=== PATIENT | female | born 1990 | race Caucasian/White ===

== ENCOUNTER 2016-11-08 05:50 | Emergency (ER) | payer OTHER ==
--- NOTE | 2016-11-08 05:58 | EDM.PDOC ---
<Viktor Chew - Last Filed: 11/08/16 07:23> ED HPI GENERAL MEDICAL PROBLEM - General Chief Complaint: Abdominal Pain Stated Complaint: LOWER ABDOMINAL PAIN Time Seen by Provider: 11/08/16 05:58 - History of Present Illness INITIAL COMMENTS - FREE TEXT/NARRATIVE: 26-year-old female presents emergency room with abdominal pain. This pain started about 1:00 this morning localized to the lower abdomen. It reminds her of ovarian pain. The patient has history of polycystic ovarian syndrome she is treated with metformin. Patient had a partial ovarian resection in the past for a cyst. Her last menstrual period was 2-3 months ago her periods are generally irregular. She is not on control. The patient was recently placed on a Medrol Dosepak because of ear block. She's been here for 2 days visiting from [facility] and had a long flight. The Medrol Dosepak was started 2 days ago in the walk-in clinic. The patient has not had any associated nausea or vomiting no diarrhea or constipation. The patient has developed some heartburn yesterday, she is using ibuprofen along with the Medrol Dosepak to see if this would help. She used quite a few times yesterday with minimal improvement. Lower Abdomen Pain Score (Numeric/FACES): 7 - Related Data Allergies Allergy/AdvReac Type Severity Reaction Status Date / Time Penicillins Allergy Cannot Verified 11/08/16 06:05 Remember Home Meds: Home Meds Ondansetron [Zofran ODT] 4 mg PO Q6H #5 tab.dis 11/08/16 [Rx] metFORMIN [Glucophage XR] 500 mg PO BIDMEALS 11/08/16 [History] oxyCODONE HCl/Acetaminophen [Percocet 5-325 mg Tablet] 1 - 2 each PO Q4H PRN # 12 tablet 11/08/16 [Rx] predniSONE 4 mg PO ASDIRECTED 11/08/16 [History] ED ROS GENERAL - Review of Systems Review Of Systems: See Below Constitutional: Reports: No Symptoms HEENT: Reports: Ear Pain. Denies: Rhinitis, Sinus Problem Respiratory: Reports: No Symptoms Cardiovascular: Reports: No Symptoms GI/Abdominal: Reports: Abdominal Pain. Denies: Constipation, Diarrhea, Nausea, Vomiting : Reports: No Symptoms, Irregular Menses. Denies: Discharge, Dysuria, Flank Pain, Urgency Musculoskeletal: Reports: No Symptoms Skin: Reports: No Symptoms Neurological: Reports: No Symptoms ED EXAM, GI/ABD - Physical Exam Exam: See Below Exam Limited By: No Limitations General Appearance: Alert, No Apparent Distress Ears: Normal External Exam, Normal Canal, Hearing Grossly Normal, Other (Right tympanic membrane appears normal left tympanic membrane is retracted neither are erythematous) Head: Atraumatic, Normocephalic Neck: Normal Inspection, Supple. No: Lymphadenopathy (L), Lymphadenopathy (R) Respiratory/Chest: No Respiratory Distress, Lungs Clear, Normal Breath Sounds Cardiovascular: Regular Rate, Rhythm, No Edema, No Murmur GI/Abdominal: Normal Bowel Sounds, Soft, Other (The patient doesn't have any significant epigastric discomfort with palpation nor does she have any right or left upper quadrant discomfort she has bilateral lower quadrant discomfort no rebound or guarding but interestingly when you press on the left side she has pain on the right side she has right-sided pain with palpation). No: Distention , Guarding, Rebound, Rigidity Back Exam: Normal Inspection. No: CVA Tenderness (L), CVA Tenderness (R) Course - Vital Signs Last Recorded V/S: Last Vital Signs Temp 36.7 C 11/08/16 05:55 Pulse 79 11/08/16 05:55 Resp 20 11/08/16 05:55 BP 129/67 11/08/16 05:55 Pulse Ox 99 11/08/16 05:55 - Orders/Labs/Meds Orders: Active Orders 24 hr Category Date Time Status OB Transvaginal [US] Stat Exams 11/08/16 08:02 Taken CULTURE URINE [RM] Stat Lab 11/08/16 06:12 Received PATIENT RETYPE [BBK] Stat Lab 11/08/16 06:30 Results TYPE AND SCREEN [BBK] Stat Lab 11/08/16 06:30 Results Dextrose 5%-0.9% NaCl [Dextrose 5%-Normal Saline] 1,000 Med 11/08/16 08:15 Active ml IV ASDIRECTED Medication Orders Dextrose/Sodium Chloride (Dextrose 5%-Normal Saline) 1,000 mls @ 150 mls/hr IV ASDIRECTED VICKI Last Admin: 11/08/16 08:45 Dose: 150 mls/hr Labs: Laboratory Tests 11/08/16 11/08/16 11/08/16 Range/Units 06:12 06:12 06:30 WBC 9.96 (3.98-10.04) K/mm3 RBC 4.04 (3.98-5.22) M/mm3 Hgb 12.6 (11.2-15.7) gm/L Hct 37.8 (34.1-44.9) % MCV 93.6 (79.4-94.8) fl MCH 31.2 (25.6-32.2) pg MCHC 33.3 (32.2-35.5) g/dl RDW Std Deviation 43.6 (36.4-46.3) fL Plt Count 258 (182-369) K/mm3 MPV 10.0 (9.4-12.3) fl Neutrophils % (Manual) 69 H (40-60) % Band Neutrophils % 0 (0-10) % Lymphocytes % (Manual) 28 (20-40) % Atypical Lymphs % 0 % Monocytes % (Manual) 3 (2-10) % Eosinophils % (Manual) 0 L (0.7-5.8) % Basophils % (Manual) 0 L (0.1-1.2) Platelet Estimate Adequate RBC Morph Comment Normal Sodium (136-145) mEq/L Potassium (3.5-5.1) mEq/L Chloride (98-107) mEq/L Carbon Dioxide (21-32) mEq/L Anion Gap (5-15) BUN (7-18) mg/dL Creatinine (0.55-1.02) mg/dL Est Cr Clr Drug Dosing mL/min Estimated GFR (MDRD) (>60) mL/min BUN/Creatinine Ratio (14-18) Glucose (74-106) mg/dL Calcium (8.5-10.1) mg/dL Total Bilirubin (0.2-1.0) mg/dL AST (15-37) U/L ALT (14-59) U/L Alkaline Phosphatase (46-116) U/L C-Reactive Protein (<1.0) mg/dL Total Protein (6.4-8.2) g/dl Albumin (3.4-5.0) g/dl Globulin gm/dL Albumin/Globulin Ratio (1-2) HCG, Quant mIU/mL Urine Color Yellow (Yellow) Urine Appearance Clear (Clear) Urine pH 6.0 (5.0-8.0) Ur Specific [place] > or = 1.030 (1.005-1.030) Urine Protein Negative (Negative) Urine Glucose (UA) Negative (Negative) Urine Ketones Negative (Negative) Urine Occult Blood Negative (Negative) Urine Nitrite Negative (Negative) Urine Bilirubin Negative (Negative) Urine Urobilinogen 0.2 (0.2-1.0) Ur Leukocyte Esterase Trace H (Negative) Urine RBC Not seen (0-5) /hpf Urine WBC 5-10 H (0-5) /hpf Ur Epithelial Cells 0-5 (0-5) /hpf Urine Bacteria Few (FEW) /hpf Urine Mucus Few (FEW) /hpf Urine HCG, Qual Positive (NEGATIVE) Blood Type Gel Antibody Screen 11/08/16 11/08/16 11/08/16 Range/Units 06:30 06:30 06:30 WBC (3.98-10.04) K/mm3 RBC (3.98-5.22) M/mm3 Hgb (11.2-15.7) gm/L Hct (34.1-44.9) % MCV (79.4-94.8) fl MCH (25.6-32.2) pg MCHC (32.2-35.5) g/dl RDW Std Deviation (36.4-46.3) fL Plt Count (182-369) K/mm3 MPV (9.4-12.3) fl Neutrophils % (Manual) (40-60) % Band Neutrophils % (0-10) % Lymphocytes % (Manual) (20-40) % Atypical Lymphs % % Monocytes % (Manual) (2-10) % Eosinophils % (Manual) (0.7-5.8) % Basophils % (Manual) (0.1-1.2) Platelet Estimate RBC Morph Comment Sodium 143 (136-145) mEq/L Potassium 3.6 (3.5-5.1) mEq/L Chloride 106 (98-107) mEq/L Carbon Dioxide 24 (21-32) mEq/L Anion Gap 16.6 H (5-15) BUN 16 (7-18) mg/dL Creatinine 0.9 (0.55-1.02) mg/dL Est Cr Clr Drug Dosing 90.50 mL/min Estimated GFR (MDRD) > 60 (>60) mL/min BUN/Creatinine Ratio 17.8 (14-18) Glucose 95 (74-106) mg/dL Calcium 8.8 (8.5-10.1) mg/dL Total Bilirubin 0.4 (0.2-1.0) mg/dL AST 14 L (15-37) U/L ALT 24 (14-59) U/L Alkaline Phosphatase 65 (46-116) U/L C-Reactive Protein (<1.0) mg/dL Total Protein 7.0 (6.4-8.2) g/dl Albumin 3.4 (3.4-5.0) g/dl Globulin 3.6 gm/dL Albumin/Globulin Ratio 0.9 L (1-2) HCG, Quant 47.0 mIU/mL Urine Color (Yellow) Urine Appearance (Clear) Urine pH (5.0-8.0) Ur Specific [place] (1.005-1.030) Urine Protein (Negative) Urine Glucose (UA) (Negative) Urine Ketones (Negative) Urine Occult Blood (Negative) Urine Nitrite (Negative) Urine Bilirubin (Negative) Urine Urobilinogen (0.2-1.0) Ur Leukocyte Esterase (Negative) Urine RBC (0-5) /hpf Urine WBC (0-5) /hpf Ur Epithelial Cells (0-5) /hpf Urine Bacteria (FEW) /hpf Urine Mucus (FEW) /hpf Urine HCG, Qual (NEGATIVE) Blood Type O POSITIVE Gel Antibody Screen Negative 11/08/16 Range/Units 08:15 WBC (3.98-10.04) K/mm3 RBC (3.98-5.22) M/mm3 Hgb (11.2-15.7) gm/L Hct (34.1-44.9) % MCV (79.4-94.8) fl MCH (25.6-32.2) pg MCHC (32.2-35.5) g/dl RDW Std Deviation (36.4-46.3) fL Plt Count (182-369) K/mm3 MPV (9.4-12.3) fl Neutrophils % (Manual) (40-60) % Band Neutrophils % (0-10) % Lymphocytes % (Manual) (20-40) % Atypical Lymphs % % Monocytes % (Manual) (2-10) % Eosinophils % (Manual) (0.7-5.8) % Basophils % (Manual) (0.1-1.2) Platelet Estimate RBC Morph Comment Sodium (136-145) mEq/L Potassium (3.5-5.1) mEq/L Chloride (98-107) mEq/L Carbon Dioxide (21-32) mEq/L Anion Gap (5-15) BUN (7-18) mg/dL Creatinine (0.55-1.02) mg/dL Est Cr Clr Drug Dosing mL/min Estimated GFR (MDRD) (>60) mL/min BUN/Creatinine Ratio (14-18) Glucose (74-106) mg/dL Calcium (8.5-10.1) mg/dL Total Bilirubin (0.2-1.0) mg/dL AST (15-37) U/L ALT (14-59) U/L Alkaline Phosphatase (46-116) U/L C-Reactive Protein < 0.2 (<1.0) mg/dL Total Protein (6.4-8.2) g/dl Albumin (3.4-5.0) g/dl Globulin gm/dL Albumin/Globulin Ratio (1-2) HCG, Quant mIU/mL Urine Color (Yellow) Urine Appearance (Clear) Urine pH (5.0-8.0) Ur Specific [place] (1.005-1.030) Urine Protein (Negative) Urine Glucose (UA) (Negative) Urine Ketones (Negative) Urine Occult Blood (Negative) Urine Nitrite (Negative) Urine Bilirubin (Negative) Urine Urobilinogen (0.2-1.0) Ur Leukocyte Esterase (Negative) Urine RBC (0-5) /hpf Urine WBC (0-5) /hpf Ur Epithelial Cells (0-5) /hpf Urine Bacteria (FEW) /hpf Urine Mucus (FEW) /hpf Urine HCG, Qual (NEGATIVE) Blood Type Gel Antibody Screen Meds: Medications Generic Name Dose Route Start Last Admin Trade Name Freq PRN Reason Stop Dose Admin Dextrose/Sodium Chloride 1,000 mls @ 150 mls/hr 11/08/16 08:15 11/08/16 08:45 Dextrose 5%-Normal Saline IV 150 mls/hr ASDIRECTED VICKI Administration Discontinued Medications Generic Name Dose Route Start Last Admin Trade Name Freq PRN Reason Stop Dose Admin Hydromorphone HCl 0.5 mg 11/08/16 08:05 11/08/16 08:31 Dilaudid IVPUSH 11/08/16 08:06 0.5 mg ONETIME ONE Administration Hydromorphone HCl 0.5 mg 11/08/16 09:43 11/08/16 09:47 Dilaudid IVPUSH 11/08/16 09:44 0.5 mg ONETIME ONE Administration Ondansetron HCl 4 mg 11/08/16 08:08 11/08/16 08:30 Zofran IVPUSH 11/08/16 08:09 4 mg ONETIME ONE Administration Ondansetron HCl 4 mg 11/08/16 10:32 Zofran Odt PO 11/08/16 10:33 ONETIME ONE Sucralfate 1 gm 11/08/16 06:29 11/08/16 06:33 Carafate PO 11/08/16 06:30 1 gm ONETIME ONE Administration - Re-Assessments/Exams Free Text/Narrative Re-Assessment/Exam: 11/08/16 07:23 Labs returning her hCG is positive she had a negative hCG 2 weeks ago. At this time is change of shift further care and disposition per Dr. Jones. Departure - Departure Disposition: Home, Self-Care 01 Clinical Impression: Abdominal pain affecting , Ruptured ovarian cyst, Early stage of - Discharge Information Prescriptions: Ondansetron [Zofran ODT] 4 mg PO Q6H #5 tab.dis oxyCODONE HCl/Acetaminophen [Percocet 5-325 mg Tablet] 1 - 2 each PO Q4H PRN # 12 tablet PRN Reason: pain relief. Instructions: Ovarian Cyst, [id number] Referrals: PCP,None [Primary Care Provider] - Forms: ED Department Discharge Additional Instructions: Evaluation in resume this morning in regards to acute onset of diffuse lower abdominal pain that awoke him from sleep. It is suspected to have ruptured a cyst from one of the ovaries likely the left one at the bases not well confirmed on ultrasound. There is a bit of fluid in the cul-de-sac behind the uterus indicating rupture. Also new onset was diagnosed and beta-hCG quantitative is 47 which is very low. The ultrasound was therefore far too early to be able to confirm any intra-uterine . Pain in the lower abdomen should gradually improve over the next 3-4 days if it's due to fluid from a ruptured cyst. They eat and drink per normal. May use Zofran 4 mg under the tongue for nausea relief every 6 hours if needed. Percocet tabs 5-325 one or 2 every 4-6 hours for pain relief if needed. If the pain is worsening over the next 12-24 hours then you need to return to the ED. Otherwise have scheduled an appointment to followup with Dr. Oconnor [facility]ATT[facility] physician on November 11 at 0900 hours in the morning. He would need to attend the lab to have lab work done pre-appointment so that is available for him. This includes a repeat beta-hCG which shouldn't quadruple over the next 4 days. - My Orders Last 24 Hours: My Active Orders 11/08/16 06:12 CULTURE URINE [RM] Stat 11/08/16 06:30 PATIENT RETYPE [BBK] Stat TYPE AND SCREEN [BBK] Stat 11/08/16 08:02 OB Transvaginal [US] Stat 11/08/16 08:15 Dextrose 5%-0.9% NaCl [Dextrose 5%-Normal Saline] 1,000 ml IV ASDIRECTED - Assessment/Plan Last 24 Hours: My Active Orders 11/08/16 06:12 CULTURE URINE [RM] Stat 11/08/16 06:30 PATIENT RETYPE [BBK] Stat TYPE AND SCREEN [BBK] Stat 11/08/16 08:02 OB Transvaginal [US] Stat 11/08/16 08:15 Dextrose 5%-0.9% NaCl [Dextrose 5%-Normal Saline] 1,000 ml IV ASDIRECTED <Noel Jones - Last Filed: 11/08/16 10:44> Course - Re-Assessments/Exams Free Text/Narrative Re-Assessment/Exam: 11/08/16 08:[address] Perales at change of shift. Quantitative beta hCG has returned very low at 47 indicating she is just barely . She still has significant discomfort left lower quadrant and suprapubically. It' s unlikely that she has an ectopic since the a sore early. A transvaginal ultrasound will be performed to see if we can identify any free fluid or blood within the pelvis. Suspect a ruptured ovarian cyst. If this is the corpus luteum that was ruptured she may go on to failure. Type and screen was ordered. 11/08/16 09:44 patient has completed her pelvic ultrasound done transvaginally. He does show fluid within the cul-de-sac. I cannot identify where it came from. Suspect left ovarian cyst rupture but not clarified. There is a ringlike density in the intrauterine cavity possibly suggesting an early gestational sac. Awaiting radiologist report in this regard. Patient is asked for more pain medicine primarily for her ear pain. She has suffered no trauma to both ears from flying. Will repeat Dilaudid 0.5 mg IV. 11/08/16 10:26 radiologist agrees with fluid within the cul-de-sac but felt that it was a small quantity. He felt was likely from a ruptured cyst but cannot visualize which ovary it came from. There is thickening of the endometrium compatible with a decidual reaction. No intrauterine gestational sac was appreciated. Patient is pretty sure she concieved around the 25 October. This would make her about 13 days . Beta hCG should be a little higher than this if this is the time of conception. Will have her followed up with Dr. Oconnor in the clinic on November 11 at 0900 hours. She will attend the lab at 0800 hours for a quantitative beta-hCG repeat. An ectopic would be unlikely at this stage been cannot be completely ruled out. Also the corpus luteum ruptured and fails to support the the will fail. Due to her continued discomfort I will send her home with 12 Percocet 5 / 325 mg tablets one to 2 every 4-6 hours needed for pain relief. If the pain worsens over the next 24 hours as it improves she is to return to the ED. Departure - Departure Time of Disposition: 10:28 Condition: fair
[2016-11-08 06:00] VITALS: BP 129/67
[2016-11-08] MEDS ORDERED: Sucralfate Suspension 1 GM/10 ML Cup PO ONE (06:29)
[2016-11-08] MEDS ORDERED: HYDROmorphone 0.5 MG/0.5 ML Syringe IVPUSH ONE ×2 (08:05→09:43)
[2016-11-08] MEDS ORDERED: Ondansetron 4 MG/2 ML SDV IVPUSH ONE (08:08)
[2016-11-08] MEDS ORDERED: Dextrose 5%-0.9% NaCl 1,000 ML IV SCH (08:15)
[2016-11-08] MEDS ORDERED: Ondansetron 4 MG Tab.DIS PO ONE (10:32)
--- NOTE | 2016-11-08 11:14 | US ---
First trimester obstetrical ultrasound: Multiple real-time images were obtained transvaginally. Free fluid is seen within the pelvis. No intrauterine gestational sac is seen. Endometrial thickness measures 2.0 cm which is increased. This presumably represents blood clot or other products of conception within the endometrial cavity. Follicles are seen within the ovaries. Slightly complicated area is noted within the right ovary believed to represent collapsing hemorrhagic corpus luteum cyst. Impression: 1. No intrauterine gestational sac is seen. Thickening of the endometrium is seen likely representing blood within the endometrial cavity or products of conception if patient has a positive test. 2. Fluid within the pelvis which appears simple and likely represents fluid from a nonvisualized ruptured cyst. 3. Other incidental finding as noted above. Diagnostic code #3
== END 2016-11-08 10:44 | disposition home or self-care (01) ==
LOC: JD.ED 05:50
DX: O34.80 Maternal care for other abnormalities of pelvic organs, unspecified trimester (principal); N83.209 Unspecified ovarian cyst, unspecified side; Z79.899 Other long term (current) drug therapy; Z88.0 Allergy status to penicillin
CPT/HCPCS: 36415; 76817; 80053; 81001; 81025; 84702; 85025; 86140; 86850; 86900; 86901; 87086; 96361; 96374; 96375; 96376; 99284; A9270; J1170; J2405; J7042; 99283